=== PATIENT | female | born 1980 | race Caucasian/White ===

== ENCOUNTER 2017-04-26 12:18 | Emergency (ER) | payer SELFPAY ==
[~2017-04-26] VITALS: Ht 152.4 cm; Wt 91.2 kg
[~2017-04-26 12:18] MED LIST: ALBU8.5H8 INH; AMOX1TAB61 PO; CEPH500C PO; MECL25TA3 PO; ONDA4TAB12 PO; OXYC-323 PO; PANT20TA58 PO; QUET100T4 PO; SERT50TA PO; TRAM-48 PO
--- NOTE | 2017-04-26 12:45 | ED.ADGEN ---
Past History Past Medical History: Anxiety, Asthma, Bipolar, Depression, Schizophrenia Past Surgical History: Appendectomy, Cholecystectomy, , Hysterectomy Smoking: Cigarettes Alcohol Use: Occasionally Drug Use: Methamphetamine Adult General Chief Complaint Chief Complaint Skin rash, HPI HPI Patient is a 36-year-old female presents with 2 different rash skin complaints. Patient has yeast intertrigo under her abdominal pannus has had rash for 3 days. Patient has small abscess over right buttocks which is been drinking 2 days without over overlying cellulitis. Patient is not diabetic.She denies history of MRSA She does not currently have her primary care physician. . Review of Systems Review of Systems ROS as per HPI. Current Medications Current Medications Current Medications Medications (Trade) Dose Ordered Sig/Perry Start Time Stop Time Status Last Admin Dose Admin Acetaminophen/ Hydrocodone Bitart (Lortab 10/325) 1 tab 1X ONCE 04/26/17 12:45 04/26/17 12:46 UNV Allergies Allergies Allergies Coded Allergies Type Severity Reaction Last Updated Verified No Known Drug Allergies 08/19/15 No Physical Exam Physical Exam Constitutional: Well developed, well nourished, no acute distress. HENT: Normocephalic, atraumatic, bilateral external ears normal, oropharynx moist. Eyes: PERRLA, EOMI. Abdomen: Bowel sounds normal, soft, mild intertrigo bellow abdominal pannus without skin breakdown. Skin: Small draining abscess to R buttocks. No overlying cellulitis. Back: No tenderness. Extremities: No tenderness. Neurologic: Alert and oriented X 3, normal motor function. Psychologic: Affect, anxious. Current Patient Data Vital Signs Vital Signs Date Time Temp Pulse Resp B/P (MAP) Pulse Ox O2 Delivery O2 Flow Rate FiO2 04/26/17 12:20 97.9 83 18 96 Room Air EKG EKG [] Radiology/Procedures Radiology/Procedures [] Course & Med Decision Making Course & Med Decision Making Pertinent Labs and Imaging studies reviewed. (See chart for details) Abx and pain medications prescribed. Recheck in the ED in 2-3 days. PCP referral. ] Final Impression Final Impression [1. Candidal intertrigo 2. buttock abscess] Problems: Dragon Disclaimer Dragon Disclaimer This electronic medical record was generated, in whole or in part, using a voice recognition dictation system. MONROE HUIZAR DO Apr 26, 2017 12:45
[2017-04-26 12:53] VITALS: BP 98/75
[2017-04-26] MEDS ORDERED: HYDROcodone/APAP 10/325 1 TAB TABLET PO ONE (13:10)
== END 2017-04-26 12:55 | disposition home or self-care (01) ==
LOC: ER 12:18
DX: B37.2 Candidiasis of skin and nail (principal); L02.31 Cutaneous abscess of buttock; F20.9 Schizophrenia, unspecified; J45.909 Unspecified asthma, uncomplicated; F31.9 Bipolar disorder, unspecified; F41.9 Anxiety disorder, unspecified; F17.210 Nicotine dependence, cigarettes, uncomplicated; F15.10 Other stimulant abuse, uncomplicated
CPT/HCPCS: 99283

== ENCOUNTER 2018-10-15 06:23 | Emergency (ER) | payer SELFPAY ==
[~2018-10-15] VITALS: Ht 152.4 cm; Wt 91.2 kg
[2018-10-15 06:23] VITALS: BP 110/75
[~2018-10-15 06:23] MED LIST changes: +ALBU2.5V8 INH; -ALBU8.5H8 INH; -OXYC-323 PO; +OXYC1TAB15 PO
[2018-10-15] MEDS ORDERED: ERYTHROMYCIN 0.5% OPHTH OINTMENT 1GM TUBE. ONE (06:43)
[2018-10-15] MEDS ORDERED: POLYMYXIN/TRIMETHOPRIM OPHTH SOLUTION 10ML BOTTLE. ONE (06:44)
--- NOTE | 2018-10-15 06:50 | PHYS DOC ---
Past History Past Medical History: Anxiety, Asthma, Bipolar, Depression, Schizophrenia Past Surgical History: Appendectomy, Cholecystectomy, , Hysterectomy Smoking: Cigarettes Alcohol Use: Occasionally Drug Use: Methamphetamine Adult General Chief Complaint Chief Complaint: EYE PROBLEMS HPI HPI Patient is a 37 year old female who presents with complaining of bilateral eye redness and discharge. Patient state she has had upper respiratory infection symptoms for a few days and since yesterday had redness of her right eye with yellow discharge. Patient states since this morning the left eye started to have discharge and erythema. Patient denies change of vision, fever and chills, nausea and vomiting. Review of Systems Review of Systems Constitutional: Denies fever or chills [] Eyes: Denies change in visual acuity, reports redness, eye pain [] HENT: Reports nasal congestion Respiratory: Denies cough or shortness of breath [] Cardiovascular: No additional information not addressed in HPI [] GI: Denies abdominal pain, nausea, vomiting, bloody stools or diarrhea [] : Denies dysuria or hematuria [] Musculoskeletal: Denies back pain or joint pain [] Integument: Denies rash or skin lesions [] Neurologic: Denies headache, focal weakness or sensory changes [] Endocrine: Denies polyuria or polydipsia [] All other systems were reviewed and found to be within normal limits, except as documented in this note. Current Medications Current Medications Current Medications Medications (Trade) Dose Ordered Sig/Perry Start Time Stop Time Status Last Admin Dose Admin Erythromycin (Romycin) 1 inch STK-MED ONCE 10/15/18 06:43 10/15/18 06:45 DC Polymyxin/ Trimethoprim Sulfate (Polytrim) 100 drop STK-MED ONCE 10/15/18 06:44 10/15/18 06:46 DC Allergies Allergies Allergies Coded Allergies Type Severity Reaction Last Updated Verified No Known Drug Allergies 08/19/15 No Physical Exam Physical Exam Constitutional: Well developed, well nourished, mild distress, non-toxic appearance. [] HENT: Normocephalic, atraumatic, bilateral external ears normal, oropharynx moist, no oral exudates, nose normal. [] Eyes: PERRLA, EOMI, bilateral conjunctival erythema, more in the right side, yellow discharge discharge. [] Neck: Normal range of motion, no tenderness, supple, no stridor. [] Cardiovascular:Heart rate regular rhythm, no murmur [] Lungs & Thorax: Bilateral breath sounds clear to auscultation [] Skin: Warm, dry, no erythema, no rash. [] Back: No tenderness, no CVA tenderness. [] Extremities: No tenderness, no cyanosis, no clubbing, ROM intact, no edema. [] Neurologic: Alert and oriented X 3, normal motor function, normal sensory function, no focal deficits noted. [] Psychologic: Affect normal, judgement normal, mood normal. [] EKG EKG [] Radiology/Procedures Radiology/Procedures [] Course & Med Decision Making Course & Med Decision Making Evaluation of patient in ER showed 37-year-old female patient with complaining of bilateral eye erythema and discharge. Patient has essentially symptom. Patient had Maxitrol eyedrop in ER and instructed to avoid of rubbing her eyes. Dragon Disclaimer Dragon Disclaimer This electronic medical record was generated, in whole or in part, using a voice recognition dictation system. 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
[2018-10-15] MEDS ORDERED: POLYMYXIN/TRIMETHOPRIM OPHTH SOLUTION 10ML BOTTLE. OU ONE (07:00)
== END 2018-10-15 07:09 | disposition home or self-care (01) ==
LOC: ER 06:23
DX: B99.9 Unspecified infectious disease (principal); H10.89 Other conjunctivitis; J45.909 Unspecified asthma, uncomplicated; F20.9 Schizophrenia, unspecified; F41.9 Anxiety disorder, unspecified; F31.9 Bipolar disorder, unspecified; F17.210 Nicotine dependence, cigarettes, uncomplicated; Z71.6 Tobacco abuse counseling
CPT/HCPCS: 99282

== ENCOUNTER 2019-06-13 09:04 | Emergency (ER) | payer SELFPAY ==
[~2019-06-13] VITALS: Ht 152.4 cm; Wt 74.8 kg
[2019-06-13] MEDS ORDERED: IV NORMAL SALINE 1,000ML 1,000 ML IV ONE (09:30)
[2019-06-13 10:00] VITALS: BP 158/100
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
== END 2019-06-13 10:00 | disposition short-term general hospital (02) ==
LOC: ER 09:04
DX: T74.21XA Adult sexual abuse, confirmed, initial encounter (principal); R25.2 Cramp and spasm; M79.652 Pain in left thigh; J45.909 Unspecified asthma, uncomplicated; F17.210 Nicotine dependence, cigarettes, uncomplicated
CPT/HCPCS: 99285

== ENCOUNTER 2021-07-24 21:54 | Emergency (ER) | payer SELFPAY ==
[~2021-07-24] VITALS: Ht 152.4 cm; Wt 82.3 kg
[~2021-07-24 21:54] MED LIST changes: +MECL-75 PO; -MECL25TA3 PO
--- NOTE | 2021-07-24 22:10 | PHYS DOC ---
Past History Past Medical History: Asthma Past Surgical History: No Surgical History Smoking: Cigarettes Alcohol Use: None Drug Use: None Adult General Chief Complaint Chief Complaint: VAGINAL BLEEDING HPI HPI Patient is a 40-year-old female who presents to the emergency department with a chief complaint of vaginal bleeding, when she wipes after she urinates. States that it is just a small amount of bright red blood. States that there is nothing in the stool. Denies any rectal bleeding. Denies any dysuria, hematuria, history of STIs, vaginal discharge or pain. States that the last time she urinated it was not there. States she already has an appointment on Monday with her primary care physician. States she had a total hysterectomy. Review of Systems Review of Systems Review of systems otherwise unremarkable except noted in HPI Allergies Allergies Allergies Coded Allergies Type Severity Reaction Last Updated Verified No Known Drug Allergies 08/19/15 No Physical Exam Physical Exam Constitutional: Well developed, well nourished, no acute distress, non-toxic appearance. [] HENT: Normocephalic, atraumatic, bilateral external ears normal, oropharynx moist, no oral exudates, nose normal. [] Eyes: conjunctiva normal, no discharge. [] Neck: Normal range of motion, no tenderness, supple, no stridor. [] Cardiovascular:Heart rate regular rhythm, no murmur [] Lungs & Thorax: Bilateral breath sounds clear to auscultation [] Abdomen: soft, no tenderness, no masses, no pulsatile masses. [] Skin: Warm, dry, no erythema, no rash. [] Back: no CVA tenderness. [] Extremities: No tenderness, no cyanosis, no clubbing, ROM intact, no edema. [] Neurologic: Alert and oriented X 3, normal motor function, normal sensory function, no focal deficits noted. [] Psychologic: Affect normal, judgement normal, mood normal. [] EKG EKG [] Radiology/Procedures Radiology/Procedures [] Heart Score C/O Chest Pain: No Risk Factors: Risk Factors: DM, Current or recent (<one month) smoker, HTN, HLP, family history of CAD, obesity. Risk Scores: Risk Factors: DM, Current or recent (<one month) smoker, HTN, HLP, family history of CAD, obesity. Course & Med Decision Making Course & Med Decision Making Patient is a 40-year-old female presents with scant vaginal bleeding when she wipes after she urinates, but has not seen it after her last urination. Vital signs not concerning. Physical exam noted above. Patient stated that it was only a small amount of blood but is now resolved. States she has an appoint with her primary care physician this week and will just follow-up with them. Patient stated she would just like to be discharged home without any more laboratory analysis. Discussed all findings with patient. Advised to keep her upcoming appointment. Gave strict return precautions to the ED. Patient grateful, verbalized understanding and agreed with plan of discharge. [] Dragon Disclaimer Dragon Disclaimer This electronic medical record was generated, in whole or in part, using a voice recognition dictation system. Departure Departure: Impression: Primary Impression: Vaginal bleeding Disposition: HOME / SELF CARE / HOMELESS Condition: GOOD Referrals: EDDIE ORTEGA DO (PCP) Additional Instructions: Thank you for coming into the emergency department tonight and allowing us to take care of you. As discussed, please call your primary care physician first thing Monday morning to update on your ED visit and set up a follow-up as soon as you can. As discussed, if you begin to bleed or you have any other concerning symptoms as we discussed please come back to the emergency department immediately. We gave you some resources for other local free clinics and primary care physicians. ANISHA PENA MD Jul 24, 2021 22:10
[2021-07-24 22:28] VITALS: BP 116/80
[2021-07-24 22:52] LABS: BACTERIA,URINE FEW /HPF (0-FEW); BILIRUBIN,URINE NEG (NEG); CLARITY,URINE HAZY; COLOR,URINE YELLOW; GLUCOSE,URINE NEG (NEG); NITRITE,URINE NEG (NEG); RBC,URINE OCC /HPF (0-2); SQUAMOUS EPITHELIAL CELL,UR FEW /LPF; UROBILINOGEN,URINE 0.2 mg/dL (0.2 mg/dL)
== END 2021-07-24 22:59 | disposition home or self-care (01) ==
LOC: ER 21:54
DX: N93.9 Abnormal uterine and vaginal bleeding, unspecified (principal)
CPT/HCPCS: 81001; 87086; 99283

== ENCOUNTER 2021-10-19 12:47 | Emergency (ER) | payer SELFPAY ==
[~2021-10-19] VITALS: Ht 152.4 cm; Wt 82.3 kg
--- NOTE | 2021-10-19 14:21 | PHYS DOC ---
Past History Past Medical History: Asthma Past Surgical History: , Hysterectomy Smoking: Cigarettes Alcohol Use: None Drug Use: None General Adult EDM: Chief Complaint: SKIN PROBLEM HPI: HPI: Patient is a 40 year old female who presents with painful, wet rash to her low abdomen. Patient reports she had a 14 years ago, and the rash seems to be surrounding the healed incision. Patient reports it started to become pa inful 3 days ago. She has been showering daily and using a heating pad on the area with some symptom relief. She presents today because the pain is unbearable. Review of Systems: Review of Systems: ROS negative or noncontributory except as mentioned in HPI. Allergies: Allergies: Allergies Coded Allergies Type Severity Reaction Last Updated Verified No Known Drug Allergies 08/19/15 No Physical Exam: PE: Constitutional: Well developed, well nourished, no acute distress, non-toxic appearance. Cardiovascular: Heart rate regular rhythm, no murmur. Lungs & Thorax: Bilateral breath sounds clear to auscultation. Abdomen: Protuberant abdomen. Intertriginous fold to the low abdomen with moist, macerated erythematous skin that is exquisitely tender. Bowel sounds normal, soft, no tenderness aside from area of rash, no masses, no pulsatile masses. Skin: See above for abdominal rash. Skin otherwise warm, dry, no erythema. Back: No step-off, no tenderness, no CVA tenderness. Current Patient Data: Vital Signs: Date Time Temp Pulse Resp B/P (MAP) Pulse Ox O2 Delivery O2 Flow Rate FiO2 10/19/21 14:58 98.1 92 18 105/70 (82) 98 Room Air 10/19/21 13:21 98.5 102 18 121/94 (103) 99 Room Air Heart Score: C/O Chest Pain: No Course & Med Decision Making: Course & Med Decision Making Pertinent Labs and Imaging studies reviewed. (See chart for details) Patient is a 40-year-old female who presents with painful rash to her low abdomen near her prior scar. Patient reports her was 14 years ago. She states that this rash began to become painful 3 days ago and has worsened since then. Rash is consistent with severe fungal infection to the intertriginous fold of her low abdomen surrounding her incision scar. There is no abscess or central clearing. Patient will be treated with topical as well as p.o. antifungal. Patient states that she already has an appointment set up with her primary care provider for . I advised her to keep that appointment for lugo of her rash. Patient was given return precautions. Patient understands and is agreeable to discharge plan. Melanie Disclaimer: Melanie Disclaimer: This electronic medical record was generated, in whole or in part, using a voice recognition dictation system. Departure Departure: Impression: Primary Impression: Tinea corporis Disposition: HOME / SELF CARE / HOMELESS Condition: STABLE Referrals: PCP,NO (PCP) Patient Instructions: Yeast Infection of the Skin, [id number] Additional Instructions: Your current treatment will be for intertriginous yeast infection of the skin. Take the oral medication once daily for 2 weeks. You may apply the cream to the affected area twice daily for 4 weeks. Shower and allow your skin to fully dry to open air for 20 minutes prior to applying the cream. Frequent exposure to open air can help prevent recurrences. Keep your appointment with your primary care provider for reevaluation. Return to the emergency department for worsening symptoms or development of new ones. Scripts Clotrimazole (CLOTRIMAZOLE) 15 Gm Cream..g. 1 NARDA TP BID for skin infection for 28 Days, #1 BOX Prov: DANNA HEARD 10/19/21 Terbinafine Hcl (TERBINAFINE HCL) 250 Mg Tablet 1 TAB PO DAILY for skin infection for 14 Days, #14 TAB 0 Refills Prov: DANNA HEARD 10/19/21 DANNA HEARD Oct 19, 2021 14:21
[2021-10-19] MEDS ORDERED: KETOROLAC 60 MG/2 ML VIAL. IM ONE (14:30)
[2021-10-19] MEDS ORDERED: TERB250T72 PO (14:48)
[2021-10-19] MEDS ORDERED: CLOT15CR23 TP (14:48)
[2021-10-19 14:58] VITALS: BP 105/70
== END 2021-10-19 15:00 | disposition home or self-care (01) ==
LOC: ER 12:47
DX: B35.4 Tinea corporis (principal); J45.909 Unspecified asthma, uncomplicated; F17.210 Nicotine dependence, cigarettes, uncomplicated
CPT/HCPCS: 96372; 99283; J1885

== ENCOUNTER 2022-02-12 11:22 | Emergency (ER) | payer SELFPAY ==
[~2022-02-12] VITALS: Ht 152.4 cm; Wt 78.2 kg
[~2022-02-12 11:22] MED LIST changes: +CLOT15CR23 TP; +TERB250T72 PO
[2022-02-12 11:30] VITALS: BP 127/84
--- NOTE | 2022-02-12 11:41 | PHYS DOC ---
Past History Past Medical History: Asthma Past Surgical History: , Hysterectomy Smoking: Cigarettes Alcohol Use: None Drug Use: None General Adult EDM: Chief Complaint: HEADACHE HPI: HPI: Patient is a 41-year-old female with headache. Patient states that she has had symptoms off and on for about a month. Headache is pounding in nature. She used to have migraine several years ago and this is consistent with such. She has not had any fever, neck stiffness, confusion or recent trauma. Review of Systems: Review of Systems: Constitutional: Denies fever Eyes: Denies change in visual acuity or eye pain HENT: Denies sore throat Respiratory: Denies shortness of breath Cardiovascular: Denies chest pain GI: Denies abd pain : Denies dysuria Musculoskeletal: Denies back or extremity injury Integument: Denies rash or skin lesions Neurologic: Reports headache, denies focal weakness or sensory changes All other systems were reviewed and found to be within normal limits, except as documented in this note. Allergies: Allergies: Allergies Coded Allergies Type Severity Reaction Last Updated Verified No Known Drug Allergies 08/19/15 No Physical Exam: PE: Constitutional: Well developed, well nourished, no acute distress, non-toxic appearance. HENT: Normocephalic, atraumatic, bilateral external ears normal, mucosa moist, nose normal. Eyes: EOMI, conjunctiva normal, no discharge. Neck: Normal range of motion, supple, no stridor, no meningeal signs. Cardiovascular: Regular rate and rhythm Lungs & Thorax: Bilateral breath sounds clear to auscultation Abdomen: Soft, no tenderness or obvious masses Skin: Warm, dry, no erythema, no rash. Extremities: No tenderness, no cyanosis, no clubbing, ROM intact, no edema. Neurologic: Alert and oriented, normal motor function, normal sensory function, no focal deficits noted. Psychologic: Affect normal, judgement normal, mood normal. EKG: EKG: [] Radiology/Procedures: Radiology/Procedures: [] Heart Score: C/O Chest Pain: No Risk Factors: Risk Factors: DM, Current or recent (<one month) smoker, HTN, HLP, family history of CAD, obesity. Risk Scores: Score 0 - 3: 2.5% MACE over next 6 weeks - Discharge Home Score 4 - 6: 20.3% MACE over next 6 weeks - Admit for Clinical Observation Score 7 - 10: 72.7% MACE over next 6 weeks - Early Invasive Strategies Course & Med Decision Making: Course & Med Decision Making Pertinent Labs and Imaging studies reviewed. (See chart for details) [] This 41-year-old male with a headache. Because symptoms have been going on for so long we initially were going to get a CT of her head. Patient states that she has had 1 a few years ago and had similar symptoms at that time. We will hold off on doing any imaging today. She was given Toradol and Compazine IM. Should symptoms become worse or any other concerns arise that she should return and have the CT done. She stable for discharge at this time. Dragon Disclaimer: Dragon Disclaimer: This electronic medical record was generated, in whole or in part, using a voice recognition dictation system. Departure Departure: Impression: Primary Impression: Headache Disposition: HOME / SELF CARE / HOMELESS Condition: STABLE Referrals: PCP,ASHLEE (PCP) Patient Instructions: General Headache Without Cause WILBERT MCQUEEN MD Feb 12, 2022 11:41
[2022-02-12] MEDS ORDERED: PROCHLORPERAZINE 10 MG/2 ML VIAL. IM ONE (11:45)
[2022-02-12] MEDS ORDERED: KETOROLAC 30 MG/ML VIAL. IM ONE (11:45)
== END 2022-02-12 12:00 | disposition home or self-care (01) ==
LOC: ER 11:22
DX: R51.9 Headache, unspecified (principal); J45.909 Unspecified asthma, uncomplicated; F17.210 Nicotine dependence, cigarettes, uncomplicated
CPT/HCPCS: 96372; 99284; J0780; J1885